=== PATIENT | female | born 1930 | race Caucasian/White ===

== ENCOUNTER 2017-01-07 08:04 | Emergency (ER) | payer MEDICARE, OTHER ==
[2017-01-07] MEDS ORDERED: SODIUM CHLORIDE 0.9% 1000ML 1,000 ML IV ONE (08:30)
[2017-01-07 08:37] LABS: BASOPHILS % (AUTO) 1 % (0-3); EOSINOPHILS % (AUTO) 0 % (0-9); HEMATOCRIT 41 % (35-47); MEAN CORPUSCULAR HGB CONC 34.9 gm/dl (32.0-36.0); MEAN CORPUSCULAR VOLUME 87 fL (81-99); MONOCYTES % (AUTO) 8.4 % (0-12); NEUTROPHILS % (AUTO) 77.2 % (37-80)
[2017-01-07 08:52] LABS: CALCIUM 8.8 mg/dl (8.5-10.1); GLOM FILT RATE 42 mL/min (>60); POTASSIUM 3.6 mMol/L (3.5-5.1); SODIUM 136 mMol/L (136-145)
[2017-01-07 09:08] LABS: APPEARANCE,URINE Slightly Cloudy; BILIRUBIN,URINE NEGATIVE (NEGATIVE); COLOR,URINE Yellow; GLUCOSE, URINE (UA) NEGATIVE (NEGATIVE); KETONES,URINE NEGATIVE (NEGATIVE); LEUKOCYTE ESTERASE ,URINE 2+ (NEGATIVE); NITRATE,URINE NEGATIVE (NEGATIVE); OCCULT BLOOD,URINE TRACE LYSED (NEG-TRACE); PH,URINE 7.5; UROBILINOGEN,URINE 0.2 (0.2-1.0 EU)
[2017-01-07 09:16] LABS: RBC,URINE 0-2 (0-3AV/HPF)
[2017-01-07] MEDS ORDERED: ATENOLOL 25 MG TAB PO SCH (10:15)
[2017-01-07] MEDS ORDERED: DONEPEZIL 10 MG TAB PO SCH (10:15)
[2017-01-07] MEDS ORDERED: LOSARTAN POTASSIUM 50 MG TAB PO SCH (10:15)
[2017-01-07] MEDS ORDERED: NIFEDIPINE 30 MG ER TABLET PO SCH (10:15)
[2017-01-07] MEDS ORDERED: SPIRONOLACTONE 25 MG TAB PO SCH (10:15)
[2017-01-07] MEDS ORDERED: ATENOLOL 25 MG TAB ONE (10:52)
[2017-01-07] MEDS ORDERED: DONEPEZIL 5 MG 5 MG TAB ONE (10:52)
[2017-01-07] MEDS ORDERED: NIFEDIPINE 30 MG ER TABLET ONE (10:53)
[2017-01-07] MEDS ORDERED: SPIRONOLACTONE 25 MG TAB ONE (10:53)
[2017-01-07] MEDS ORDERED: PRAVASTATIN SODIUM 20 MG TAB ONE (10:53)
[2017-01-07] MEDS ORDERED: LOSARTAN POTASSIUM 50 MG TAB ONE (10:53)
[2017-01-07] MEDS ORDERED: PRAVASTATIN SODIUM 20 MG TAB PO SCH (11:00)
[2017-01-07 11:17] VITALS: TEMP 98.9
[2017-01-07 13:05] VITALS: PULSE 74; O2SAT 95
[2017-01-07 13:06] VITALS: BP 167/59; RESP 16
== END 2017-01-07 12:40 | DRG 641 ==
LOC: ED 08:04
DX: E86.0 Dehydration (principal); G20 Parkinson's disease
CPT/HCPCS: 71020; 80048; 81001; 84484; 85025; 93005; 96365; 99284

== ENCOUNTER 2017-12-29 16:49 | Emergency (ER) | payer MEDICARE, OTHER ==
[2017-12-29 17:16] VITALS: RESP 24
[2017-12-29 17:31] LABS: INR 0.91 (0.86-1.12)
[2017-12-29 17:32] LABS: HEMATOCRIT 39 % (35-47); HEMOGLOBIN 14.2 gm/dl (12.0-15.5); MEAN CORPUSCULAR HEMOGLOBIN 31.3 pg (27.0-32.0); MEAN CORPUSCULAR HGB CONC 36.1 gm/dl (32.0-36.0); MEAN CORPUSCULAR VOLUME 87 fL (81-99)
[2017-12-29 17:38] VITALS: TEMP 98.8
[2017-12-29 17:38] LABS: ALBUMIN 3.8 gm/dl (3.4-5.0); ALKALINE PHOSPHATASE 92 IU/L (46-116); ALT 23 IU/L (14-63); AST 18 IU/L (15-37); BILIRUBIN,TOTAL 0.5 mg/dl (0.2-1.0); BLOOD UREA NITROGEN 26 mg/dl (7-18); CALCIUM 9.5 mg/dl (8.5-10.1); CARBON DIOXIDE 23.3 mEq/L (21-32); CHLORIDE 97 mMol/L (98-107); CREATININE 1.33 mg/dl (0.60-1.00); GLOM FILT RATE 38 mL/min (>60); GLUCOSE 115 mg/dl (74-106); POTASSIUM 4.3 mMol/L (3.5-5.1); SODIUM 134 mMol/L (136-145); TOTAL PROTEIN 7.9 gm/dl (6.4-8.2); TROP I < 0.017 ng/ml (0.000-0.056)
[2017-12-29 17:55] LABS: BAND NEUTROPHILS % (MANUAL) 0 %; BASOPHILS % (MANUAL) 0 % (0-3); EOSINOPHILS % (MANUAL) 0 % (0-9); LYMPHOCYTES % (MANUAL) 14 % (10-50); MONOCYTES % (MANUAL) 12 % (0-12); NEUTROPHILS % (MANUAL) 74 % (37-80); NORMAL RBCS PRESENT
[2017-12-29] MEDS ORDERED: SULFAMETHOXAZOLE/TRIMETHOPRI 800/160 MG PO ONE (18:27)
[2017-12-29] MEDS ORDERED: SULFAMETHOXAZOLE/TRIMETHOPRI 800/160 MG ONE (18:37)
[2017-12-29 19:03] VITALS: BP 179/96; PULSE 85; O2SAT 91
== END 2017-12-29 18:56 | disposition home or self-care (01) | DRG 69 ==
LOC: ED 16:49
DX: G45.9 Transient cerebral ischemic attack, unspecified (principal); A08.4 Viral intestinal infection, unspecified
CPT/HCPCS: 36415; 70450; 71045; 80053; 84484; 85007; 85027; 85610; 85730; 93005; 99283; 99284; A9270-GY